=== PATIENT | male | born 1965 | race Caucasian/White ===

== ENCOUNTER 2017-08-07 22:10 | Emergency (ER) | payer BC ==
[~2017-08-07] VITALS: Ht 175.3 cm; Wt 94.3 kg
[2017-08-07] MEDS ORDERED: EYE IRRIGATION (OPTH) 120 ML BTL OP ONE (23:00)
[2017-08-07] MEDS ORDERED: PROPARACAINE HCL 0.5% OP SOLN 15 ML BTL OP ONE (23:00)
[2017-08-07] MEDS ORDERED: CLINDAMYCIN PHOS 600 MG/ 4 ML VIAL IM ONE (23:00)
[2017-08-07] MEDS ORDERED: HYDROCODONE/APAP 5MG-325MG TAB PO ONE (23:00)
[2017-08-08] MEDS ORDERED: PROTONIX20 MG (01:04)
[2017-08-08] MEDS ORDERED: ZOLOFT50 MG PO (01:04)
[2017-08-08 01:11] VITALS: BP 145/80
== END 2017-08-07 23:13 | disposition home or self-care (01) ==
LOC: FSED 22:10
DX: H57.12 Ocular pain, left eye (principal); H10.022 Other mucopurulent conjunctivitis, left eye; S05.02XA Injury of conjunctiva and corneal abrasion without foreign body, left eye, initial encounter